=== PATIENT | female | born 1965 | race African-American/Black ===

== ENCOUNTER 2017-03-25 17:55 | Emergency (ER) | payer BC | END 2017-03-25 18:39 | disposition home or self-care (01) | LOC: ER 17:55 | DX: M79.641 Pain in right hand (principal); M79.642 Pain in left hand; F17.200 Nicotine dependence, unspecified, uncomplicated; I10 Essential (primary) hypertension; Z88.8 Allergy status to other drugs, medicaments and biological substances | CPT/HCPCS: 99283 ==